=== PATIENT | male | born 1940 | race Caucasian/White ===

== ENCOUNTER → 2017-01-10 | Day surgery (SDC) | payer MEDICARE ==
[~2017-01-10] MED LIST: ALLOPURINOL300 MG PO; ASPIRIN81 M2 PO; ATENOLOL50 MG PO; BENAZEPRIL PO; CENTRUM PO; DESYREL50 MG PO; EFFEXOR75 M1 PO; FINASTERIDE5 MG PO; FUROSEMIDE40 MG PO; IMDUR-ER60 MG PO; K-DUR10 MEQ PO; MYRBETRIQ50 MG PO; PRAVASTATIN SOD40 MG PO; SPIRIVA18 MCG INH; VESICARE PO; Z QUILL
--- NOTE | ~2017-01-10 | OR ---
Unit #: [id number] #: [id number] Patient: SHREYAS SALINAS JR [id number] [address] [place], [place] [address] [id number] MR#: [id number] NAME: SHREYAS SALINAS JR ROOM: Date of Procedure: 01/10/2017 Admission Date: 01/10/2017 Surgeon: Tyshawn Caro M.D. : 1940 Attending Physician: Tyshawn Caro M.D. Primary Care Physician: Jony Hoover M.D. [facility] CENTER OPERATIVE NOTE PROCEDURE PERFORMED Lumbar epidural steroid injection under x-ray guided needle placement with provider administered conscious sedation. PREOPERATIVE DIAGNOSES 1. Acute lumbar radiculitis. 2. Herniated disk, L3-L4. 3. Spinal stenosis, L3-L4. 4. Degenerative joint disease, multiple levels. 5. Degenerative disk disease, multiple levels. 6. Facet arthrosis, multiple levels. INDICATIONS FOR PROCEDURE The patient presents today with longstanding history of chronic lumbar radicular pain as well as chronic lumbar facet arthralgia secondary to his underlying degenerative processes. He is generally fairly well managed medically with ongoing continuous conservative measures as well as previously had an L4 through S1 fusion. He presents today with signs and symptoms to above with an L3-L4 radiculitis as well as facet arthralgic pain, which are compatible with his x-ray studies. He has failed to respond to conservative measures. After discussing risks and benefits of proceeding today with an L3-L4 epidural steroid injection, the patient agreed this would be the appropriate course of action. DESCRIPTION OF PROCEDURE He was then taken to the operating room, where he was prepped and draped in sterile manner. Standard monitors were applied. He was sedated with 2 mg of IV Versed and lumbar epidural space was attempted to be accessed at L3-L4 level. However, on initial attempt, CSF was obtained and it was felt that there may well have been scar tissue forming obliterating the epidural space at this level. Therefore, the epidural needle was withdrawn and replaced at the L2-L3 level again using loss of resistance technique and x-ray guidance. Needle placement was successful at the L2-L3 level confirmed with the injection of 2 mL of Omnipaque. There was good superior and inferior flow at this L2-L3 level needle placement. Following successful needle placement location, which required a total x-ray time of 36 seconds, the patient received an injectate containing 4 mL normal saline and 80 mg of methylprednisolone. He tolerated this procedure well. He was discharged home with followup instructions, which include return to this clinic in 1 week, at which point, we will again attempt an L3-L4 as well as referral to [facility] for potential radiofrequency ablation of his facet arthrosis disease. Unit #: [id number] #: [id number] Patient: SHREYAS SALINAS Dictated by... Jonny Vazquez/randolph TD: 01/11/2017 04:01 JOB #: [id number] CC: Twin Lind M.D. SUR[facility]ERY CENTER OPERATIVE NOTE Page 1 of 1 X Gregory Caro MD X PROCEDURE OPERATIVE NOTE
== END | disposition home or self-care (01) ==
LOC: CCSC 13:17
DX: G89.29 Other chronic pain (principal); M51.16 Intervertebral disc disorders with radiculopathy, lumbar region; M47.26 Other spondylosis with radiculopathy, lumbar region; M48.06 Spinal stenosis, lumbar region; J44.9 Chronic obstructive pulmonary disease, unspecified; I48.91 Unspecified atrial fibrillation; N40.0 Benign prostatic hyperplasia without lower urinary tract symptoms; F17.210 Nicotine dependence, cigarettes, uncomplicated; Z88.2 Allergy status to sulfonamides; Z88.8 Allergy status to other drugs, medicaments and biological substances; Z79.82 Long term (current) use of aspirin; Z79.899 Other long term (current) drug therapy; Z98.1 Arthrodesis status; Z96.642 Presence of left artificial hip joint; Z98.41 Cataract extraction status, right eye; Z98.42 Cataract extraction status, left eye; Z98.890 Other specified postprocedural states
CPT/HCPCS: 82947; J1040; J2250

== ENCOUNTER → 2017-02-23 | Day surgery (SDC) | payer MEDICARE ==
--- NOTE | ~2017-02-23 | OR ---
Unit #: [id number] #: [id number] Patient: SHREYAS SALINAS JR [id number] [address] [place], [place] [address] [id number] MR#: [id number] NAME: SHREYAS SALINAS JR ROOM: Date of Procedure: 02/23/2017 Admission Date: 02/23/2017 Surgeon: Tyshawn Caro M.D. : 1940 Attending Physician: Gregory Caro Primary Care Physician: Jony Hoover M.D. SUR[facility] CENTER OPERATIVE NOTE PROCEDURE PERFORMED Lumbar epidural steroid injection under x-ray guided needle placement with provider administered conscious sedation. PREOPERATIVE DIAGNOSES 1. Acute lumbar radiculitis. 2. Spinal stenosis, lumbosacral spine. 3. Herniated disk, L3-L4. 4. Degenerative joint disease, lumbosacral spine. 5. Degenerative disk disease, lumbosacral spine. 6. Facet arthrosis, lumbosacral spine multiple levels. 7. Facet arthralgia. INDICATIONS FOR PROCEDURE The patient presents today status post one previous lumbar approach epidural steroid injection for an acute radiculitis, which had failed to respond to conservative therapy. The patient states he got good results initially; however over the course of the intervening time between his initial visit and today's return, he has had return of symptoms to the point that he desires an additional epidural steroid injection. He also did not experience nor did we expect him to any relief in the facet arthralgia component of his pain. He is pending a [facility] evaluation for potential facet joint injections and/or radiofrequency ablation. Following discussing risks and benefits of proceeding today with a lumbar approach epidural steroid injection including the potential for utilizing a dual needle access technique, the patient agreed this would be the appropriate course of action. DESCRIPTION OF PROCEDURE He was then taken to the operating room, where he was prepped and draped in a sterile manner. Standard monitors were applied. He was sedated with 1 mg of IV Versed and lumbar epidural space accessed at L3-L4 level using loss of resistance technique and x-ray guidance. Needle placement was confirmed with injection of 2 mL of Omnipaque. There was good superior and inferior flow at this L3-L4 level needle placement. Following this successful needle placement, the patient received an injectate containing 8 mL normal saline and 80 mg of methylprednisolone. He tolerated this procedure well. He was discharged home with followup instructions, which include an offer to return to this clinic as early as 06/08/2017 if we could be of further service to him. Dictated by... Unit #: [id number] #: [id number] Patient: SHREYAS SALINAS Jonny Shafer/randolph TD: 02/23/2017 12:45 JOB #: [id number] CC: Twin Lind M.D. SUR[facility] CENTER OPERATIVE NOTE Page 1 of 1 X Gregory Caro MD X PROCEDURE OPERATIVE NOTE
== END | disposition home or self-care (01) ==
LOC: CCSC 11:21
DX: M51.17 Intervertebral disc disorders with radiculopathy, lumbosacral region (principal); M51.16 Intervertebral disc disorders with radiculopathy, lumbar region; M48.07 Spinal stenosis, lumbosacral region; M47.27 Other spondylosis with radiculopathy, lumbosacral region; J44.9 Chronic obstructive pulmonary disease, unspecified; N40.0 Benign prostatic hyperplasia without lower urinary tract symptoms; I48.91 Unspecified atrial fibrillation; F17.210 Nicotine dependence, cigarettes, uncomplicated; Z85.828 Personal history of other malignant neoplasm of skin; Z88.2 Allergy status to sulfonamides; Z79.82 Long term (current) use of aspirin; Z79.899 Other long term (current) drug therapy; Z88.8 Allergy status to other drugs, medicaments and biological substances; Z96.642 Presence of left artificial hip joint; Z98.41 Cataract extraction status, right eye; Z98.42 Cataract extraction status, left eye; Z98.890 Other specified postprocedural states
CPT/HCPCS: 82947; J1040; J2250